=== PATIENT | male | born 1965 | race Caucasian/White ===

== ENCOUNTER 2019-12-18 10:50 | Emergency (ER) | payer MEDICAID ==
[~2019-12-18] VITALS: Wt 54.4 kg
== END 2019-12-18 12:03 | disposition home or self-care (01) ==
LOC: ED 10:50
DX: K40.90 Unilateral inguinal hernia, without obstruction or gangrene, not specified as recurrent (principal); F17.200 Nicotine dependence, unspecified, uncomplicated; Z88.0 Allergy status to penicillin

== ENCOUNTER → 2020-01-09 | Outpatient (CLI) | payer MEDICAID ==
[2020-01-09 14:36] LABS: BASO # 0.1 10*3/uL (0.0-0.1); BASO % 0.9 % (0.0-1.0); EOS # 0.2 10*3/uL (0.0-0.4); EOS % 1.8 % (1.0-4.0); HEMATOCRIT 50.3 % (42.0-52.0); LYMPH # 2.7 10*3/uL (1.3-4.4); LYMPH % 23.5 % (27.0-41.0); MEAN CELL VOLUME 95.4 fl (80.0-94.0); MEAN CORPUSCULAR HGB 31.7 pg (27.0-31.0); MEAN CORPUSCULAR HGB CONC 33.2 g/dl (33.0-37.0); MEAN PLATELET VOLUME 10.5 fl (9.6-12.3); MONO # 0.8 10*3/uL (0.1-1.0); NEUT # 7.5 10*3/uL (2.3-7.9); NEUT % 66.4 % (47.0-73.0); PLATELET COUNT AUTOMATED 308 10*3/uL (130-400); RED BLOOD COUNT 5.27 10*6/uL (4.50-5.90); RED CELL DISTRI WIDTH 13.4 % (0-14.5); WHITE BLOOD COUNT 11.4 10*3/uL (4.8-10.8)
[2020-01-09 14:55] LABS: CHLORIDE 109 mmol/L (98-107); POTASSIUM 4.3 mmol/L (3.5-5.1); SODIUM 141 mmol/L (136-145)
[2020-01-09 15:00] LABS: BUN 11 mg/dl (7-24); CREATININE 0.78 mg/dL (0.70-1.30)
== END | disposition home or self-care (01) ==
LOC: LAB 14:19
PROVIDERS: ATTEND Surgery
DX: K40.90 Unilateral inguinal hernia, without obstruction or gangrene, not specified as recurrent (principal)

== ENCOUNTER → 2020-01-12 | Outpatient (CLI) | payer MEDICAID | END | disposition home or self-care (01) | LOC: COVID19 15:02 | PROVIDERS: ATTEND Surgery | DX: Z01.818 Encounter for other preprocedural examination (principal); Z20.828 Contact with and (suspected) exposure to other viral communicable diseases ==

== ENCOUNTER → 2020-01-15 | Day surgery (SDC) | payer MEDICAID ==
[2020-01-09 13:39] VITALS: BP 150/97; BP 176/99
[~2020-01-15] VITALS: Ht 170.1 cm; Wt 56.7 kg
--- NOTE | 2020-01-15 09:00 | NUR ---
DR CANCHOLA SEEN PATIENT. SURGERY CANCELLED DUE TO PATIENTS COMPAINTS OF NOT FEELING WELL AND DIFFUCUTLY BREATHING. APPOINTMENT MADE TO FOLLOW UP WITH [facility] TODAY AT 1330. LINDA HACKETT RN
== END ==
LOC: SDC 00:53
PROVIDERS: ATTEND Surgery
DX: K40.90 Unilateral inguinal hernia, without obstruction or gangrene, not specified as recurrent (principal); Z53.8 Procedure and treatment not carried out for other reasons

== ENCOUNTER → 2021-03-18 | Outpatient (CLI) | payer OTHER | END | disposition home or self-care (01) | LOC: RAD 09:36 | PROVIDERS: ATTEND Family Medicine | DX: J44.1 Chronic obstructive pulmonary disease with (acute) exacerbation (principal) ==

== ENCOUNTER 2021-08-17 13:15 | Emergency (ER) | payer OTHER ==
[~2021-08-17] VITALS: Wt 59.0 kg
[2021-08-17] MEDS ORDERED: CEFDINIR300 MG PO (14:06)
[2021-08-17] MEDS ORDERED: MECLIZINE HCL25 M2 PO (14:06)
[2021-08-17] MEDS ORDERED: FLONASE ALLERG9.9 ML NAS (14:06)
== END 2021-08-17 14:17 | disposition home or self-care (01) ==
LOC: ED 13:15
DX: J32.8 Other chronic sinusitis (principal); Z88.0 Allergy status to penicillin

== ENCOUNTER 2022-12-27 09:58 | Emergency (ER) | payer OTHER ==
[~2022-12-27] VITALS: Ht 170.1 cm; Wt 59.0 kg
[~2022-12-27 09:58] MED LIST: CEFDINIR300 MG PO; FLONASE ALLERG9.9 ML NAS; MECLIZINE HCL25 M2 PO
[2022-12-27] MEDS ORDERED: AMLODIPINE BESYL5 MG PO (10:19)
[2022-12-27] MEDS ORDERED: BEVESPI AEROS10.7 GM INH (10:20)
[2022-12-27] MEDS ORDERED: TIZANIDINE HCL4 MG PO (12:13)
== END 2022-12-27 12:20 | disposition home or self-care (01) ==
LOC: ED 09:58
DX: M54.50 Low back pain, unspecified (principal); L72.9 Follicular cyst of the skin and subcutaneous tissue, unspecified; J44.9 Chronic obstructive pulmonary disease, unspecified; Z88.0 Allergy status to penicillin; F17.290 Nicotine dependence, other tobacco product, uncomplicated

== ENCOUNTER 2023-01-12 10:28 | Emergency (ER) | payer OTHER ==
[~2023-01-12] VITALS: Wt 55.8 kg
[~2023-01-12 10:28] MED LIST changes: +AMLODIPINE BESYL5 MG PO; +BEVESPI AEROS10.7 GM INH; +TIZANIDINE HCL4 MG PO
[2023-01-12 12:13] LABS: BASO # 0.1 10*3/uL (0.0-0.1); BASO % 0.6 % (0.0-1.0); EOS # 0.1 10*3/uL (0.0-0.4); EOS % 0.6 % (1.0-4.0); MEAN CELL VOLUME 93.3 fl (80.0-94.0); MEAN CORPUSCULAR HGB 32.1 pg (27.0-31.0); MEAN CORPUSCULAR HGB CONC 34.4 g/dl (33.0-37.0); MEAN PLATELET VOLUME 10.7 fl (9.6-12.3); MONO # 0.9 10*3/uL (0.1-1.0); MONO % 7.3 % (3.0-9.0); NEUT # 8.9 10*3/uL (2.3-7.9); NEUT % 74.3 % (47.0-73.0); PLATELET COUNT AUTOMATED 377 10*3/uL (130-400); RED BLOOD COUNT 5.36 10*6/uL (4.50-5.90); RED CELL DISTRI WIDTH 12.7 % (0-14.5)
[2023-01-12 12:29] LABS: ALKALINE PHOSPHATASE 93 U/L (46-116); BUN 7 mg/dl (9-23); CHLORIDE 98 mmol/L (98-107); LIPASE 38 U/L (12-53); POTASSIUM 4.8 mmol/L (3.4-5.1); SGPT/ALT 11 U/L (5-49); TOTAL PROTEIN 7.4 gm/dL (6.0-8.0)
[2023-01-12 12:40] LABS: ACT PARTIAL THROMBO TIME 30.8 SECONDS (20.0-32.1)
[2023-01-12 12:52] LABS: BILIRUBIN Negative (Negative); BLOOD Negative (Negative); CLARITY Clear (Clear); COLOR Yellow (Yellow); GLUCOSE Negative (Negative); KETONE 1+ (Negative); LEUKO ESTERASE Negative (Negative); NITRITE Negative (Negative); PH 5.5 (4.5-8.0)
[2023-01-12 13:05] LABS: BACTERIA 1+
[2023-01-12 13:06] LABS: MUCOUS TRACE; WBC 0-2 wbc/hpf (0-5)
== END 2023-01-13 19:10 | disposition short-term general hospital (02) ==
LOC: ED 10:28
PROVIDERS: Emergency Medicine
DX: R91.8 Other nonspecific abnormal finding of lung field (principal); M54.50 Low back pain, unspecified; R53.83 Other fatigue; R53.1 Weakness; R10.2 Pelvic and perineal pain; J44.9 Chronic obstructive pulmonary disease, unspecified; Z88.0 Allergy status to penicillin